=== PATIENT | male | born 1940 | race Two or more races ===

== ENCOUNTER 2019-02-09 22:36 | Emergency (ER) | payer OTHER ==
[~2019-02-09] VITALS: Ht 167.6 cm; Wt 78.9 kg
[2019-02-09] MEDS ORDERED: TENORMIN25 MG PO (22:57)
[2019-02-09] MEDS ORDERED: ADVAIR 100-501 EACH IH (22:57)
[2019-02-09] MEDS ORDERED: PRAVASTATIN SOD20 MG PO (22:57)
[2019-02-09] MEDS ORDERED: ROPINIROLE HC0.25 MG PO (22:57)
[2019-02-09] MEDS ORDERED: HORIZANT600 MG PO (22:58)
[2019-02-09] MEDS ORDERED: AZELASTINE137 MCG/0. NS (22:58)
[2019-02-10] MEDS ORDERED: ANALPRAM HC 2.530 GM RECTAL (00:36)
== END 2019-02-10 00:46 | disposition home or self-care (01) ==
LOC: ER 22:36
DX: K64.8 Other hemorrhoids (principal)